=== PATIENT | female | born 1975 ===

== ENCOUNTER 2018-03-04 09:54 | Outpatient (CLI) | payer BC ==
--- NOTE | 2018-03-04 11:18 | RAD ---
CHEST PA AND LATERAL: HISTORY: A 42-year-old female with a history of cough. FINDINGS: Heart size is within normal limits. The lungs are clear. No pneumonia, edema, or pleural effusion. IMPRESSION: No acute intrathoracic disease. No evidence for pneumonia. POS: [facility]
== END 2018-03-04 09:55 | disposition home or self-care (01) ==
LOC: RAD-FRANK 09:54
PROVIDERS: ATTEND Nurse Practitioner Family
DX: J40 Bronchitis, not specified as acute or chronic (principal)
CPT/HCPCS: 71046